=== PATIENT | female | born 1940 | race Caucasian/White ===

== ENCOUNTER 2020-02-23 16:55 | IRF | payer MEDICARE, SELFPAY ==
[2020-02-23 16:55] VITALS: BP 137/51; PULSE 89; RESP 20; TEMP 36.4; O2SAT 100
--- NOTE | 2020-02-23 17:14 | ADMGEN ---
This patient, Kristyn Sánchez, was admitted to [facility] Room 223-02. Patient/family oriented to hospital policies and general routines including ID bracelet, bed and alarms, visiting hours, pain management, procedures, bathroom and other care routines, personal items, smoking policy, room service/diet, and visiting hours. Information on how to activate the Rapid Response Team has been discussed. Patient/Family are encouraged to report perceived risks to care and to ask questions if they do not understand what they are told or what they should do.
[2020-02-23 18:16] VITALS: BMI 37.2
[2020-02-23 20:00] VITALS: PULSE 68; RESP 18; O2SAT 100
[2020-02-23] MEDS: SENNOSIDES 8.6 MG TABLET PO (21:20)
[2020-02-23] MEDS: traZODone HCL 50 MG TABLET PO (21:20)
[2020-02-23] MEDS: ACETAMINOPHEN 500 MG TABLET PO (21:20)
[2020-02-23] MEDS: oxyCODONE HCL (*CRX) 2.5 MG TAB IR PO (21:26)
[2020-02-23 21:45] VITALS: BP 133/60; PULSE 68; RESP 18; TEMP 36.9; O2SAT 100
[2020-02-24] MEDS: ACETAMINOPHEN 500 MG TABLET PO (02:38)
[2020-02-24] MEDS: oxyCODONE HCL (*CRX) 2.5 MG TAB IR PO (02:38)
[2020-02-24 05:18] VITALS: BP 134/60; PULSE 68; RESP 18; TEMP 36.8; O2SAT 96
[2020-02-24 05:31] LABS: Basophils Absolute Auto 0.1 K/mm3 (0.0-0.1); Basophils Percent Auto 0.7 % (0.2-1.2); Eosinophils Absolute Auto 0.4 K/mm3 (0-0.3); Hematocrit 29.1 % (37.0-47.0); Hemoglobin 9.4 g/dL (12.0-15.0); Immature Granulocyte Absolute 0.04 K/mm3 (0.00-0.031); Immature Granulocyte Percent A 0.6 % (0-0.5); Lymphocytes Absolute Auto 1.47 K/mm3 (0.9-3.2); Lymphocytes Percent Auto 20.6 % (18.3-44.2); Mean Corpuscular HGB Conc 32.3 g/dl (32-36); Mean Corpuscular Hemoglobin 28.2 pg (26-34); Mean Corpuscular Volume 87.4 fl (80-100); Mean Platelet Volume 8.9 fl (7.4-10.4); Monocytes Absolute Auto 0.9 K/mm3 (0.1-0.6); Monocytes Percent Auto 11.9 % (2.6-8.5); Neutrophils Absolute Auto 4.3 K/mm3 (1.3-6.7); Neutrophils Percent Auto 60.2 % (45.5-73.1); Platelet Count Result 372 k/mm3 (150-375); Red Blood Count 3.33 M/mm3 (4.2-5.4); Red Cell Distribution Width 14.6 % (11.5-14.5); White Blood Count 7.1 K/mm3 (4.5-10.0)
[2020-02-24 05:47] LABS: Anion Gap 0 mmol/L (8-16); Blood Urea Nitrogen 14 mg/dL (7-17); Calcium 8.4 mg/dL (8.4-10.2); Carbon Dioxide 32 mmol/L (22-30); Chloride 103 mmol/L (98-107); Estimated Glomerular Filt Rate > 60; Glucose 97 mg/dL (65-105); Potassium 3.9 mmol/L (3.4-5.0); Sodium 135 mmol/L (137-145)
[2020-02-24] MEDS: ACETAMINOPHEN 500 MG TABLET 1000 MG PO ×3 (08:27→21:32)
[2020-02-24] MEDS: polyethylene glycoL 3350 17 GM POWD.PACK PO (08:28)
[2020-02-24] MEDS: FLUTICASONE PROPIONATE 0.05% NA SPR 16 GM BTL (*BKC) 2 SPRAY NASAL (08:28)
[2020-02-24] MEDS: SENNOSIDES 8.6 MG TABLET PO ×2 (08:28→21:33)
[2020-02-24] MEDS: ENOXAPARIN 40 MG/0.4 ML SYRINGE SUB-Q (08:28)
[2020-02-24] MEDS: FLUTICASONE/SALMETEROL 230-21 MCG INHALER 1 PUFF 2 PUFF INHALATION ×2 (08:30→21:40)
--- NOTE | 2020-02-24 11:52 | WPDREHABHP ---
H&P: HPI History of Present Illness Date/Time: 02/24/20 11:52 Chief Complaint: C2 vertebral body burst fracture involving both pedicles and left inferior and superior pubic rami fractures and multiple rib fractures Narrative: Kristyn Sánchez is a 79 year old female HISTORY OF PRESENT ILLNESS: The patient's primary rehab impairment category is major multiple trauma without brain or spine injury The etiologic diagnosis is C2 vertebral body burst fracture involving both pedicles. Left inferior and superior pubic rami fractures. Multiple rib fractures I saw this patient [id number] on February 24, 2020 at 11:30 a.m. The patient is a 79 years old female with a prior medical history of bronchial asthma and Raynaud's disease presented to [facility] on February 14, 2020 from [facility] after a ground level fall resulting in multiple traumatic injuries in fractures. The patient reported she has had multiple falls over the last few weeks. The patient arrived to the emergency room neurologically intact on 2L of oxygen. Imaging add [facility] showed multiple rib fractures on right 4th to 11th ribs and left 2nd to 10th ribs, C2 vertebral body burst fracture with multiple ligamentous injuries, left superior inferior pubic rami fractures, and age indeterminate T10 compression fracture as well. Ortho trauma was consulted and recommended that patient be weight-bearing as tolerated with conservative management of fractures. Neurosurgery was consulted and recommended that patient be placed in cervical collar with a SOMI collar to being made and strict cervical precautions. The patient underwent a C1-C4 posterior cervical fusion laminectomy per Dr. Mosqueda. Patient was left intubated after surgery and was transferred to the surgical ICU with the 1st attempt of extubation failed, but the patient was successfully extubated on the afternoon of 1228. VICK drain was placed following surgery. Postop complications included acute blood-loss anemia, significant pain, and a failed extubation. The patient was transferred to the medical floor on 02/16. The patient was worked up for a possible syncopal episode from the fall but TTE and CTA were unremarkable the patient was weaned off oxygen on February 18, 2020. The patient VICK drain was discontinued on 02/19. The patient was discharged to [facility] on Lovenox times 14 days with stop date on 03/08 2020 #COVI: the patient has not traveled outside the [place] or had contact with someone who is ill that has traveled outside the [place] in the last 21 days. The patient has had traveled to an area of the [place] that is experiencing known transmission of the Coronavirus and has not had close personal contact with anyone that has. The patient does not have a fever. The patient is not experiencing lower respiratory illness symptoms. Negative COVID test on February 13, 2020. Therapy was initiated at the acute care facility and the patient transferred to us from [facility] on February 23, 2020 FALLS OR SURGERIES: the patient has had no major surgery in the last 100 days. The patient has had 2 or more falls with injury in the last year. 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 PAST SURGICAL HISTORY: appendicectomy, cholecystectomy, tonsillectomy. SOCIAL HISTORY: The patient lives alone in a 1 level home with 2 steps to enter. She was previously completely independent without device, but does have 4 wheeled walker at home from a previous surgery. Patient reports no tobacco, alcohol, or illicit drug use. Never smoke. FAMILY HISTORY: Noncontributory PRIOR LEVEL OF FUNCTION: Eating was [INDEPENDENT] Oral Care was [INDEPENDENT] Toileting Hygiene was [INDEPENDENT] Shower/Bathing was [INDEPENDENT] Upper Body Dressing was [INDE
[2020-02-24 13:23] VITALS: BMI 37.2
[2020-02-24 14:00] VITALS: BP 136/53; PULSE 88; RESP 20; TEMP 36.7; O2SAT 99
[2020-02-24 20:31] VITALS: BP 134/51; PULSE 96; RESP 20; TEMP 35.9; O2SAT 97
[2020-02-24] MEDS: traZODone HCL 50 MG TABLET PO (21:33)
[2020-02-25] MEDS: oxyCODONE HCL (*CRX) 2.5 MG TAB IR PO ×2 (02:09→22:29)
[2020-02-25] MEDS: ACETAMINOPHEN 500 MG TABLET 1000 MG PO ×4 (03:09→20:42)
[2020-02-25 05:51] VITALS: BP 113/51; PULSE 88; RESP 20; TEMP 36.5; O2SAT 96
[2020-02-25] MEDS: ENOXAPARIN 40 MG/0.4 ML SYRINGE SUB-Q (08:28)
[2020-02-25] MEDS: FLUTICASONE PROPIONATE 0.05% NA SPR 16 GM BTL (*BKC) 2 SPRAY NASAL (08:28)
[2020-02-25] MEDS: FLUTICASONE/SALMETEROL 230-21 MCG INHALER 1 PUFF 2 PUFF INHALATION ×2 (08:29→20:46)
--- NOTE | 2020-02-25 13:05 | PCDIET ---
Nutrition Follow-Up Complete: Nutrition Diagnosis: Obesity related to history of excessive energy intake as evidenced by BMI of 37.2. Nutrition Goal: Patient to consume 75% of meals or greater. Goal met. Patient consuming 100% of meals on regular diet. Patient reports good appetite and likes the food here. Last recorded weight is 83.6 kg. Recommend obtaining weekly weights. Bowel Motility: Documented BM on 02/24/20 per toileting assessment. Labs Reviewed: No new labs available. Meds Noted: Roxicodone, Advair Additional Notes: No documented pressure sores. Will continue to monitor with same goal. Nutrition Monitoring and Evaluation: Follow in 7 days.
[2020-02-25 14:00] VITALS: BP 137/53; PULSE 93; RESP 20; TEMP 36.4; O2SAT 97
--- NOTE | 2020-02-25 14:32 | RPD ---
INDIVIDUALIZED PLAN OF CARE FOR Kristyn Sánchez Brief Synthesis of Pre-Admission Screen, Post-Admission Evaluation and Therapy Evaluations: The patient presents to rehab with Major Multiple Trauma of C2 vertebral body burst fracture involving both pedicles, left inferior and superior pubic rami fractures, and multiple rib fractures. Comorbidities include s/p ground level fall, recurrent falls, right 4th, 5th, 6th, 7th, 8th,9th, 11th rib fractures, left 2nd, 3rd, 4th, 5th, 6th, 7th, 8th, 10th rib fractures, left superior/inferior pubic rami fracture, T10 compression fracture, arthritis, asthma, Raynaud's disease, severe bilateral glenohumeral joint osteoarthritis, superior dislocation of the right humerus, acute respiratory insufficiency, and incidental left kidney mass. The complexity of the patient's medical management, nursing, and therapy needs require an inpatient rehab hospital stay with a physician-led interdisciplinary team approach. The patient?s needs will be best met in an intensive program vs. at a lower level of care. The patient requires physician services for medical oversight, management of postop complications in setting of present comorbidities, and pain management. She will be followed at least three times a week by the rehabilitation physician. The patient requires nursing services for DVT prophylactics, infection protection, medication management and education, pressure relief, and wound care. Prior to admission, the patient was completely independent in all regards, with no device. Deficits include:ADLs, Balance, Endurance, Family Training/Education, Mobility, Pain Management, ROM, Safety, Strength, and Transfers. Bench Repair Technician/Case Management for: Discharge Planning and Patient/Family Counseling Physical Therapy: 5 days per week for 90 minutes. Treatments may include: Therapeutic Exercise, Gait Training, Neuromuscular Re-education, Transfer Training, Community Reintegration, Bed Mobility, Patient/Family Education, Wheelchair Mobility Group Therapy/Concurrent Therapy Rationales: -Improve attention span during functional activities in a distracted environment. -Enhance problem solving and/or adequate judgment skills during functional activities in a distracted environment. -Promote increased safety awareness in a distracted environment to reduce fall risk with functional tasks, transfers, and ambulation to allow a more safe, self-sufficient return to the home environment. -Improve dynamic balance skills to promote safety and independence with functional activities in a distracted environment for maximum gain. Occupational Therapy: 5 days per week for 90 minutes. Treatments may include: Therapeutic Exercise, Therapeutic Activity, Cognitive Training, Self-Care Transfer Training, Community Reintegration, Home Management, Patient/Family Education, Wheelchair Mobility Training, Energy Conservation Training Group Therapy/Concurrent Therapy Rationales: -Allow therapist to observe and teach generalization and carry-over of skills learned in individual therapy. -Enhance problem solving and sequencing skills during therapeutic activities in a distracted environment. -Promote increased safety awareness in a realistic setting to reduce fall risk with functional tasks due to visual and verbal distractions. -Increase functional level with ADLs, ADL transfers and use of adaptive equipment through therapeutic activities with others while promoting safety to allow a more safe, self-sufficient return home. Medical Prognosis: Good Anticipated Length of Stay: 14 days Rehab Goals: Eating Goal: 05-Setup or Clean Up Assistance Oral Hygiene Goal: 05-Setup or Clean Up Assistance Toileting Hygiene Goal: 04-Supervision or Touching Assistance Shower/Bathe Self Goal: 03-Partial/Moderate Assistance Upper Body Dressing Goal: 03-Partial/Moderate Assistance Lower Body Dressing Goal: 05-Setup or Clean Up Assistance Putting On/Taking Off Footwear Goal: 05-Setup or Clean U
--- NOTE | 2020-02-25 15:19 | WPDNEURORHBP ---
Subjective Date/time seen: 02/25/20 15:19 admitted to the rehab with C2 vertebral body burst fracture involving both pedicles and left inferior and superior pubic rami fractures and multiple rib fractures remains afebrile with temp of 36.4? pulse 93 respiration 20 pulse ox 97% and blood pressure 137/53 lab from yesterday shows WBC 7.1 hemoglobin 9.4 platelet count of 372 and electrolytes fairly normal Review of Systems Review of Systems: All systems reviewed & are unremarkable except as noted in HPI and below Functional Status Ambulation Ability Ability to Ambulate 10 Feet: Contact Guard Ability to Ambulate 50 Feet With 2 Turns: Contact Guard Ability to Ambulate 150 Feet: Contact Guard Ambulation Assistive Devices: Walker, Wheeled Exam Const: General: cooperative, comfortable and no acute distress Orientation/consciousness: patient oriented x3 HENMT: Head: normocephalic Ears: hearing grossly normal bilaterally General nose exam: Normal external nose present and No nasal discharge present Face and sinus: normal facial exam Mouth: Yes Normal oral and palatal mucosa present Eyes: General: appearance normal, both eyes and all related structures Neck: Neck: normal visual inspection and full ROM Resp: Auscultation: clear to auscultation bilaterally Cardio: Jugular venous distension: no JVD Rate: regular rate Rhythm: regular rhythm GI: Auscultation: normal bowel sounds Neuro: General: patient oriented x3 Cranial nerves: Yes CN's II-XII intact bilaterally Speech: normal speech Plantar Reflex Responses: downgoing: bilateral Psych: Appearance: grossly normal Objective Data Vital Signs Vital Signs: Vital Signs - 24 hr 02/24/20 20:31 02/25/20 05:51 02/25/20 14:00 Temperature 35.9 C L 36.5 C 36.4 C Pulse Rate 96 88 93 Respiratory Rate 20 20 20 Blood Pressure 134/51 L 113/51 L 137/53 L Pulse Oximetry 97 96 97 Intake/Output Intake/Output: Intake & Output 02/22/20 02/23/20 02/24/20 02/25/20 23:59 23:59 23:59 23:59 Intake Total 720 480 Balance 720 480 Meds/Results Medications: Active Medications Generic Name Dose Route Start Last Admin Trade Name Freq PRN Reason Stop Dose Admin Acetaminophen 1,000 mg 02/24/20 09:00 02/25/20 14:21 Acetaminophen 500 Mg Tablet PO 1,000 mg Q6H VICENTE Administration Albuterol 2 puff 02/23/20 17:32 Albuterol Sulfate (*Sp) Aerosol 1 Puff INHALATION QID PRN Wheezing Enoxaparin Sodium 40 mg 02/24/20 09:00 02/25/20 08:28 Enoxaparin 40 Mg/0.4 Ml Syringe SUB-Q 03/22/20 09:01 40 mg DAILY VICENTE Administration Fluticasone Propionate 2 spray 02/24/20 09:00 02/25/20 08:28 Fluticasone Propionate 0.05% Na Spr 16 Gm Btl (*Bkc) NASAL 2 spray QAM VICENTE Administration Non-Formulary Medication 8 mg 02/23/20 21:00 Ramelteon [Rozerem] PO 03/24/20 21:01 HS VICENTE Oxycodone HCl 2.5 mg 02/23/20 17:32 02/25/20 02:09 Oxycodone Hcl (*Crx) 2.5 Mg Tab Ir PO 2.5 mg Q4H PRN Administration Pain (Scale Score 7-10) Polyethylene Glycol 17 gm 02/24/20 09:00 02/25/20 08:29 Polyethylene Glycol 3350 17 Gm Powd.Pack PO Not Given DAILY VICENTE Fluticasone/Salmeterol 2 puff 02/23/20 21:00 02/25/20 08:29 Fluticasone/Salmeterol 230-21 Mcg Inhaler 1 Puff INHALATION 2 puff Q12HR VICENTE Administration Senna 8.6 mg 02/23/20 21:00 02/25/20 08:28 Sennosides 8.6 Mg Tablet PO Not Given Q12HR VICENTE Trazodone HCl 50 mg 02/23/20 21:00 02/24/20 21:33 Trazodone Hcl 50 Mg Tablet PO 50 mg HS VICENTE Administration Progress Note: A&P Assessment and Plan (1) 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
[2020-02-25 20:44] VITALS: BP 131/51; PULSE 95; RESP 16; TEMP 37; O2SAT 98
[2020-02-25] MEDS: traZODone HCL 50 MG TABLET PO (20:46)
[2020-02-26] MEDS: oxyCODONE HCL (*CRX) 2.5 MG TAB IR PO ×2 (02:55→10:03)
[2020-02-26] MEDS: ACETAMINOPHEN 500 MG TABLET 1000 MG PO ×4 (04:02→21:15)
[2020-02-26 05:33] VITALS: BP 105/40; PULSE 89; RESP 16; TEMP 36.3; O2SAT 97
[2020-02-26] MEDS: ENOXAPARIN 40 MG/0.4 ML SYRINGE SUB-Q (08:32)
[2020-02-26] MEDS: FLUTICASONE PROPIONATE 0.05% NA SPR 16 GM BTL (*BKC) 2 SPRAY NASAL (08:32)
[2020-02-26] MEDS: FLUTICASONE/SALMETEROL 230-21 MCG INHALER 1 PUFF 2 PUFF INHALATION ×2 (08:33→21:17)
[2020-02-26] MEDS: SENNOSIDES 8.6 MG TABLET PO ×2 (08:33→21:16)
--- NOTE | 2020-02-26 11:37 | PCPTNOTE ---
Kristyn Sánchez was evaluated for a wheeled walker on 02/26/2020 by this physical therapist. The wheeled walker will resolve patient's mobility limitations and will be used for ADL's within the home. The patient can safely use the wheeled walker. ?The wheeled walker will resolve the patient?s mobility deficits, including decreased balance, endurance, and strength.
[2020-02-26 14:00] VITALS: BP 164/51; PULSE 103; RESP 20; TEMP 36.6; O2SAT 99
--- NOTE | 2020-02-26 15:51 | WPDNEURORHBP ---
Subjective Date/time seen: 02/26/20 15:51 admitted to the rehab with C2 vertebral body burst fracture involving both pedicles and left inferior and superior pubic rami fractures along with multiple rib fractures remains afebrile with temp of 36.6? pulse 103 high and respiration 20 blood pressure 164/51 labs with WBC 7.1 hemoglobin 9.4 platelet count of 372 and electrolytes was somewhat low put sodium of 135 Review of Systems Review of Systems: All systems reviewed & are unremarkable except as noted in HPI and below Functional Status Ambulation Ability Ability to Ambulate 10 Feet: Standby Assistance Ability to Ambulate 50 Feet With 2 Turns: Standby Assistance Ability to Ambulate 150 Feet: Contact Guard Ambulation Assistive Devices: Walker, Wheeled Exam Narrative: Exam Narrative: awake alert cooperative in no obvious acute distress oriented x3, head normocephalic with no cranial bruit ear nose throat examination normal neck supple with no cervical bruit , thyromegaly no lymphadenopathy, heart regular with no murmur lungs clear to auscultation with no rhonchi or crepitations abdomen is soft with no organomegaly nontender normal bowel sounds neurological examination revealed her to be awake alert oriented x3 the cranial examination is normal his speech is normal motor examination revealed no drift of 1 side other side reflexes symmetrical plantars downgoing as psych grossly normal Const: General: cooperative and no acute distress Objective Data Vital Signs Vital Signs: Vital Signs - 24 hr 02/25/20 20:44 02/26/20 05:33 02/26/20 14:00 Temperature 37.0 C 36.3 C L 36.6 C Pulse Rate 95 89 103 H Respiratory Rate 16 16 20 Blood Pressure 131/51 L 105/40 L 164/51 H Pulse Oximetry 98 97 99 Intake/Output Intake/Output: Intake & Output 02/23/20 02/24/20 02/25/20 02/26/20 23:59 23:59 23:59 23:59 Intake Total 720 720 480 Balance 720 720 480 Meds/Results Medications: Active Medications Generic Name Dose Route Start Last Admin Trade Name Freq PRN Reason Stop Dose Admin Acetaminophen 1,000 mg 02/24/20 09:00 02/26/20 15:30 Acetaminophen 500 Mg Tablet PO 1,000 mg Q6H VICENTE Administration Albuterol 2 puff 02/23/20 17:32 Albuterol Sulfate (*Sp) Aerosol 1 Puff INHALATION QID PRN Wheezing Enoxaparin Sodium 40 mg 02/24/20 09:00 02/26/20 08:32 Enoxaparin 40 Mg/0.4 Ml Syringe SUB-Q 03/22/20 09:01 40 mg DAILY VICENTE Administration Fluticasone Propionate 2 spray 02/24/20 09:00 02/26/20 08:32 Fluticasone Propionate 0.05% Na Spr 16 Gm Btl (*Bkc) NASAL 2 spray QAM VICENTE Administration Non-Formulary Medication 8 mg 02/23/20 21:00 Ramelteon [Rozerem] PO 03/24/20 21:01 HS VICENTE Oxycodone HCl 5 mg 02/26/20 18:00 Oxycodone Hcl (*Crx) 5 Mg Tab Ir PO Q6HR VICENTE Polyethylene Glycol 17 gm 02/24/20 09:00 02/26/20 08:34 Polyethylene Glycol 3350 17 Gm Powd.Pack PO Not Given DAILY VICENTE Fluticasone/Salmeterol 2 puff 02/23/20 21:00 02/26/20 08:33 Fluticasone/Salmeterol 230-21 Mcg Inhaler 1 Puff INHALATION 2 puff Q12HR VICENTE Administration Senna 8.6 mg 02/23/20 21:00 02/26/20 08:33 Sennosides 8.6 Mg Tablet PO 8.6 mg Q12HR VICENTE Administration Trazodone HCl 50 mg 02/23/20 21:00 02/25/20 20:46 Trazodone Hcl 50 Mg Tablet PO 50 mg HS VICENTE Administration Progress Note: A&P Assessment and Plan (1) 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
[2020-02-26] MEDS: oxyCODONE HCL (*CRX) 5 MG TAB IR PO ×2 (17:57→23:55)
[2020-02-26 20:00] VITALS: PULSE 103; RESP 20; O2SAT 99
--- NOTE | 2020-02-26 20:15 | PC.NURSE ---
Late entry: Patient had been complaining of discomfort from brace, feeling like something was poking her neck area. Per Dr. Rodriguez, place some kind of cushion to said areas. When went in to assess to see what would be best to use, she stated it was fine now; she just repositioned herself and it stopped bothering her (stating area james near shoulder area which has padding. Will continue to monitor, and instructed to let us know if bothers her again.
[2020-02-26] MEDS: traZODone HCL 50 MG TABLET PO (21:15)
[2020-02-26 22:00] VITALS: BP 152/53; PULSE 90; RESP 18; TEMP 36.5; O2SAT 98
[2020-02-27] MEDS: ACETAMINOPHEN 500 MG TABLET 1000 MG PO ×4 (03:52→20:20)
[2020-02-27 06:00] VITALS: BP 152/53; PULSE 90; RESP 18; TEMP 36.6; O2SAT 98
[2020-02-27] MEDS: oxyCODONE HCL (*CRX) 5 MG TAB IR PO ×3 (06:42→17:37)
[2020-02-27] MEDS: ENOXAPARIN 40 MG/0.4 ML SYRINGE SUB-Q (09:52)
[2020-02-27] MEDS: FLUTICASONE PROPIONATE 0.05% NA SPR 16 GM BTL (*BKC) 2 SPRAY NASAL (09:52)
[2020-02-27] MEDS: FLUTICASONE/SALMETEROL 230-21 MCG INHALER 1 PUFF 2 PUFF INHALATION ×2 (09:53→20:21)
[2020-02-27] MEDS: SENNOSIDES 8.6 MG TABLET PO ×2 (09:54→20:21)
--- NOTE | 2020-02-27 11:34 | WPDNEURORHBP ---
Subjective Date/time seen: 79 years old with C2 vertebral body burst fracture involving both pedicles and left inferior and superior pubic rami fracture and multiple rib fractures remains afebrile temp of 36.6? pulse 90 respiration 18 pulse ox 98% on room air and a blood pressure 152/53, no new lab Review of Systems Review of Systems: All systems reviewed & are unremarkable except as noted in HPI and below Functional Status Ambulation Ability Ability to Ambulate 10 Feet: Standby Assistance Ability to Ambulate 50 Feet With 2 Turns: Standby Assistance Ability to Ambulate 150 Feet: Contact Guard Ambulation Assistive Devices: Walker, Wheeled Exam Const: General: cooperative, no acute distress, alert and awake Nutritional Appearance: average body habitus Orientation/consciousness: patient oriented x3 HENMT: Ears: hearing grossly normal bilaterally General nose exam: Normal external nose present and No nasal discharge present Face and sinus: normal facial exam Mouth: Yes Normal oral and palatal mucosa present Eyes: General: appearance normal, both eyes and all related structures Resp: Auscultation: clear to auscultation bilaterally Cardio: Jugular venous distension: no JVD Rate: regular rate Rhythm: regular rhythm GI: Auscultation: normal bowel sounds Neuro: General: patient oriented x3 and moves all extremities Cranial nerves: Yes CN's II-XII intact bilaterally Cognition (Neuro): normal cognition Speech: normal speech Motor exam (neuro): 5/5 motor strength present throughout Sensory Exam: normal sensation Coordination: [id number] test normal Extrem: General: full ROM Psych: Appearance: grossly normal Objective Data Vital Signs Vital Signs: Vital Signs - 24 hr 02/26/20 14:00 02/26/20 20:00 02/26/20 22:00 Temperature 36.6 C 36.5 C Pulse Rate 103 H 103 H 90 Respiratory Rate 20 20 18 Blood Pressure 164/51 H 152/53 H Pulse Oximetry 99 99 98 02/27/20 06:00 Temperature 36.6 C Pulse Rate 90 Respiratory Rate 18 Blood Pressure 152/53 H Pulse Oximetry 98 Intake/Output Intake/Output: Intake & Output 02/24/20 02/25/20 02/26/20 02/27/20 23:59 23:59 23:59 23:59 Intake Total 720 720 720 240 Balance 720 720 720 240 Meds/Results Medications: Active Medications Generic Name Dose Route Start Last Admin Trade Name Freq PRN Reason Stop Dose Admin Acetaminophen 1,000 mg 02/24/20 09:00 02/27/20 09:52 Acetaminophen 500 Mg Tablet PO 1,000 mg Q6H VICENTE Administration Albuterol 2 puff 02/23/20 17:32 Albuterol Sulfate (*Sp) Aerosol 1 Puff INHALATION QID PRN Wheezing Enoxaparin Sodium 40 mg 02/24/20 09:00 02/27/20 09:52 Enoxaparin 40 Mg/0.4 Ml Syringe SUB-Q 03/22/20 09:01 40 mg DAILY VICENTE Administration Fluticasone Propionate 2 spray 02/24/20 09:00 02/27/20 09:52 Fluticasone Propionate 0.05% Na Spr 16 Gm Btl (*Bkc) NASAL 2 spray QAM VICENTE Administration Non-Formulary Medication 8 mg 02/23/20 21:00 Ramelteon [Rozerem] PO 03/24/20 21:01 HS VICENTE Oxycodone HCl 5 mg 02/26/20 18:00 02/27/20 06:42 Oxycodone Hcl (*Crx) 5 Mg Tab Ir PO 5 mg Q6HR VICENTE Administration Polyethylene Glycol 17 gm 02/24/20 09:00 02/27/20 10:04 Polyethylene Glycol 3350 17 Gm Powd.Pack PO Not Given DAILY VICENTE Fluticasone/Salmeterol 2 puff 02/23/20 21:00 02/27/20 09:53 Fluticasone/Salmeterol 230-21 Mcg Inhaler 1 Puff INHALATION 2 puff Q12HR VICENTE Administration Senna 8.6 mg 02/23/20 21:00 02/27/20 09:54 Sennosides 8.6 Mg Tablet PO 8.6 mg Q12HR VICENTE Administration Trazodone HCl 50 mg 02/23/20 21:00 02/26/20 21:15 Trazodone Hcl 50 Mg Tablet PO 50 mg HS VICENTE Administration Progress Note: A&P Assessment and Plan (1) 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
[2020-02-27 14:03] VITALS: BP 130/53; PULSE 92; RESP 16; TEMP 36.7; O2SAT 96
[2020-02-27 20:20] VITALS: PULSE 86; RESP 18; O2SAT 97
[2020-02-27] MEDS: traZODone HCL 50 MG TABLET PO (20:21)
[2020-02-27 21:31] VITALS: BP 122/56; PULSE 86; RESP 18; TEMP 36; O2SAT 97
[2020-02-28] MEDS: oxyCODONE HCL (*CRX) 5 MG TAB IR PO ×5 (00:15→23:30)
[2020-02-28] MEDS: ACETAMINOPHEN 500 MG TABLET 1000 MG PO ×4 (03:20→20:08)
[2020-02-28 04:23] VITALS: BP 111/49; PULSE 82; RESP 18; TEMP 36.2; O2SAT 97
[2020-02-28] MEDS: FLUTICASONE PROPIONATE 0.05% NA SPR 16 GM BTL (*BKC) 2 SPRAY NASAL (09:46)
[2020-02-28] MEDS: ENOXAPARIN 40 MG/0.4 ML SYRINGE SUB-Q (09:47)
[2020-02-28] MEDS: SENNOSIDES 8.6 MG TABLET PO ×2 (09:47→20:09)
[2020-02-28] MEDS: FLUTICASONE/SALMETEROL 230-21 MCG INHALER 1 PUFF 2 PUFF INHALATION ×2 (09:48→20:08)
[2020-02-28 14:00] VITALS: BP 117/39; PULSE 95; RESP 18; TEMP 36.4; O2SAT 99
[2020-02-28] MEDS: traZODone HCL 50 MG TABLET PO (20:08)
[2020-02-28 22:00] VITALS: BP 133/61; PULSE 84; RESP 18; TEMP 36.2; O2SAT 99
[2020-02-29] MEDS: oxyCODONE HCL (*CRX) 5 MG TAB IR PO ×4 (05:12→23:37)
[2020-02-29 05:45] VITALS: BP 148/53; PULSE 90; RESP 18; TEMP 37.3; O2SAT 96
[2020-02-29 08:00] VITALS: PULSE 90; RESP 18; O2SAT 96
[2020-02-29] MEDS: ENOXAPARIN 40 MG/0.4 ML SYRINGE SUB-Q (08:32)
[2020-02-29] MEDS: ACETAMINOPHEN 500 MG TABLET 1000 MG PO ×3 (08:32→21:02)
[2020-02-29] MEDS: FLUTICASONE PROPIONATE 0.05% NA SPR 16 GM BTL (*BKC) 2 SPRAY NASAL (08:33)
[2020-02-29] MEDS: SENNOSIDES 8.6 MG TABLET PO ×2 (08:34→21:02)
[2020-02-29] MEDS: FLUTICASONE/SALMETEROL 230-21 MCG INHALER 1 PUFF 2 PUFF INHALATION ×2 (08:44→21:00)
[2020-02-29 14:00] VITALS: BP 111/45; PULSE 77; RESP 20; TEMP 36.6; O2SAT 99
[2020-02-29 20:00] VITALS: PULSE 87; RESP 20; O2SAT 100
[2020-02-29] MEDS: traZODone HCL 50 MG TABLET PO (21:02)
[2020-02-29 22:00] VITALS: BP 132/63; PULSE 87; RESP 20; TEMP 36.6; O2SAT 100
[2020-03-01] MEDS: ACETAMINOPHEN 500 MG TABLET 1000 MG PO ×4 (03:20→22:09)
[2020-03-01 06:00] VITALS: BP 124/48; PULSE 84; RESP 20; TEMP 36.6; O2SAT 95
[2020-03-01] MEDS: oxyCODONE HCL (*CRX) 5 MG TAB IR PO ×3 (06:04→17:03)
[2020-03-01] MEDS: ENOXAPARIN 40 MG/0.4 ML SYRINGE SUB-Q (08:18)
[2020-03-01] MEDS: FLUTICASONE PROPIONATE 0.05% NA SPR 16 GM BTL (*BKC) 2 SPRAY NASAL (08:18)
[2020-03-01] MEDS: FLUTICASONE/SALMETEROL 230-21 MCG INHALER 1 PUFF 2 PUFF INHALATION ×2 (08:18→22:09)
[2020-03-01] MEDS: SENNOSIDES 8.6 MG TABLET PO ×2 (08:18→22:10)
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
[2020-03-01 14:00] VITALS: BP 125/52; PULSE 79; RESP 18; TEMP 36.6; O2SAT 96
[2020-03-01 20:00] VITALS: PULSE 84; RESP 20; O2SAT 99
[2020-03-01 22:00] VITALS: BP 141/61; PULSE 84; RESP 20; TEMP 36.7; O2SAT 99
[2020-03-01] MEDS: traZODone HCL 50 MG TABLET PO (22:10)
[2020-03-02] MEDS: oxyCODONE HCL (*CRX) 5 MG TAB IR PO ×5 (01:07→23:59)
[2020-03-02] MEDS: ACETAMINOPHEN 500 MG TABLET 1000 MG PO ×4 (04:27→20:38)
[2020-03-02 05:11] LABS: Basophils Percent Auto 0.7 % (0.2-1.2); Eosinophils Absolute Auto 0.4 K/mm3 (0-0.3); Eosinophils Percent Auto 7.2 % (0-4.4); Hematocrit 28.4 % (37.0-47.0); Hemoglobin 9.1 g/dL (12.0-15.0); Immature Granulocyte Absolute 0.02 K/mm3 (0.00-0.031); Immature Granulocyte Percent A 0.4 % (0-0.5); Mean Corpuscular Hemoglobin 28.9 pg (26-34); Mean Corpuscular Volume 90.2 fl (80-100); Mean Platelet Volume 8.6 fl (7.4-10.4); Monocytes Absolute Auto 0.6 K/mm3 (0.1-0.6); Monocytes Percent Auto 10.3 % (2.6-8.5); Neutrophils Absolute Auto 3.1 K/mm3 (1.3-6.7); Neutrophils Percent Auto 57.4 % (45.5-73.1); Platelet Count Result 379 k/mm3 (150-375); Red Blood Count 3.15 M/mm3 (4.2-5.4); Red Cell Distribution Width 15.3 % (11.5-14.5); White Blood Count 5.4 K/mm3 (4.5-10.0)
[2020-03-02 05:27] LABS: Anion Gap 0 mmol/L (8-16); Blood Urea Nitrogen 16 mg/dL (7-17); Calcium 8.7 mg/dL (8.4-10.2); Carbon Dioxide 33 mmol/L (22-30); Chloride 104 mmol/L (98-107); Estimated Glomerular Filt Rate > 60; Glucose 92 mg/dL (65-105); Potassium 3.7 mmol/L (3.4-5.0); Sodium 137 mmol/L (137-145)
[2020-03-02 06:00] VITALS: BP 125/55; PULSE 81; RESP 20; TEMP 36.8; O2SAT 98
[2020-03-02 08:00] VITALS: PULSE 81; RESP 20; O2SAT 98
[2020-03-02] MEDS: ENOXAPARIN 40 MG/0.4 ML SYRINGE SUB-Q (10:19)
[2020-03-02] MEDS: FLUTICASONE PROPIONATE 0.05% NA SPR 16 GM BTL (*BKC) 2 SPRAY NASAL (10:19)
[2020-03-02] MEDS: SENNOSIDES 8.6 MG TABLET PO ×2 (10:20→20:39)
[2020-03-02] MEDS: FLUTICASONE/SALMETEROL 230-21 MCG INHALER 1 PUFF 2 PUFF INHALATION ×2 (10:21→20:39)
--- NOTE | 2020-03-02 11:24 | PCDIET ---
Nutrition Follow-Up Complete: Nutrition Diagnosis: Obesity related to history of excessive energy intake as evidenced by BMI of 37.2. Nutrition Goal: Patient to consume 75% of meals or greater. Goal met. Patient consuming 100% of most meals on regular diet. Last recorded weight is 83.6 kg. Recommend obtaining new weight. Bowel Motility: Last documented BM on 03/01/20. Labs Reviewed: Hgb (9.1), Hct (28.4), Cr (0.4) Meds Noted: Albuterol, Advair, Senna Additional Notes: No pressure sores documented. Will continue to monitor with same goal. Nutrition Monitoring and Evaluation: Follow in 7 days.
[2020-03-02 14:00] VITALS: BP 132/56; PULSE 85; RESP 16; TEMP 35.9; O2SAT 98
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
[2020-03-02] MEDS: traZODone HCL 50 MG TABLET PO (20:39)
[2020-03-02 20:50] VITALS: PULSE 88; RESP 18; O2SAT 97
[2020-03-02 22:00] VITALS: BP 143/61; PULSE 88; RESP 18; TEMP 36.2; O2SAT 97
[2020-03-03] MEDS: oxyCODONE HCL (*CRX) 5 MG TAB IR PO ×4 (05:46→23:40)
[2020-03-03 06:00] VITALS: BP 141/56; PULSE 86; RESP 18; TEMP 36.3; O2SAT 99
[2020-03-03] MEDS: SENNOSIDES 8.6 MG TABLET PO ×2 (09:46→20:10)
[2020-03-03] MEDS: LORATADINE 10 MG TABLET PO (09:46)
[2020-03-03] MEDS: ACETAMINOPHEN 500 MG TABLET 1000 MG PO ×3 (09:47→20:09)
[2020-03-03] MEDS: ENOXAPARIN 40 MG/0.4 ML SYRINGE SUB-Q (09:47)
[2020-03-03] MEDS: FLUTICASONE PROPIONATE 0.05% NA SPR 16 GM BTL (*BKC) 2 SPRAY NASAL (09:47)
[2020-03-03] MEDS: FLUTICASONE/SALMETEROL 230-21 MCG INHALER 1 PUFF 2 PUFF INHALATION ×2 (09:48→20:09)
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
[2020-03-03 14:00] VITALS: BP 148/61; PULSE 92; RESP 18; TEMP 36.6; O2SAT 96
--- NOTE | 2020-03-03 17:50 | PC.NURSE ---
loratidine d not given due to administration of loratidine dose prior to order for loratineD
[2020-03-03] MEDS: traZODone HCL 50 MG TABLET PO (20:10)
[2020-03-03 20:30] VITALS: PULSE 92; RESP 18; O2SAT 96
[2020-03-03 22:00] VITALS: BP 145/60; PULSE 86; RESP 20; TEMP 36.3; O2SAT 100
[2020-03-04] MEDS: ACETAMINOPHEN 500 MG TABLET 1000 MG PO ×4 (02:50→20:47)
[2020-03-04] MEDS: oxyCODONE HCL (*CRX) 5 MG TAB IR PO ×4 (05:22→23:54)
[2020-03-04 06:00] VITALS: BP 120/56; PULSE 88; RESP 18; TEMP 36.2; O2SAT 95
[2020-03-04] MEDS: SENNOSIDES 8.6 MG TABLET PO ×2 (08:32→20:47)
[2020-03-04] MEDS: LORATADINE/PSEUDOEPHEDRINE (*CRX) 10/240 MG TABLET ER 24 HR 1 TAB PO (08:32)
[2020-03-04] MEDS: FLUTICASONE PROPIONATE 0.05% NA SPR 16 GM BTL (*BKC) 2 SPRAY NASAL (08:33)
[2020-03-04] MEDS: FLUTICASONE/SALMETEROL 230-21 MCG INHALER 1 PUFF 2 PUFF INHALATION ×2 (08:33→20:48)
[2020-03-04] MEDS: ENOXAPARIN 40 MG/0.4 ML SYRINGE SUB-Q (08:33)
--- NOTE | 2020-03-04 09:05 | PCOTNOTE ---
Attempted to see Patient for A.M. scheduled treatment session. Patient complains of having a severe sinus headache, nausea and some dizziness. Patient refused to participate at this time.
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
[2020-03-04 10:30] VITALS: BP 135/59; PULSE 85; O2SAT 97
--- NOTE | 2020-03-04 13:05 | PCOTNOTE ---
Patient performed partial treatment this session. Patient was unable to tolerate full minutes this date due to having increased complaint of severe sinus headache, nausea, dizziness and fatigue.
--- NOTE | 2020-03-04 13:50 | PCPTNOTE ---
The patient treatment was not able to be completed on 03-04-2020 due to patient stating feeling dizzy and nauseated declined therapy sessions. Attempted at 10:30 and 13:45. R.N informed. Patient missed 51 minutes of PT session this date. Will plan to continue treatment per plan of care.
[2020-03-04 14:00] VITALS: BP 119/49; PULSE 88; RESP 16; TEMP 36.6; O2SAT 97
[2020-03-04 20:44] VITALS: BP 114/46; PULSE 87; RESP 18; TEMP 36.2; O2SAT 98
[2020-03-04] MEDS: traZODone HCL 50 MG TABLET PO (20:47)
[2020-03-05] MEDS: ACETAMINOPHEN 500 MG TABLET 1000 MG PO ×4 (03:00→20:23)
[2020-03-05] MEDS: oxyCODONE HCL (*CRX) 5 MG TAB IR PO ×3 (05:47→17:55)
[2020-03-05 06:00] VITALS: BP 115/51; PULSE 83; RESP 20; TEMP 35.7; O2SAT 97
[2020-03-05 08:00] VITALS: PULSE 83; RESP 20; O2SAT 97
[2020-03-05] MEDS: SENNOSIDES 8.6 MG TABLET PO ×2 (09:31→20:24)
[2020-03-05] MEDS: LORATADINE/PSEUDOEPHEDRINE (*CRX) 10/240 MG TABLET ER 24 HR 1 TAB PO (09:31)
[2020-03-05] MEDS: FLUTICASONE PROPIONATE 0.05% NA SPR 16 GM BTL (*BKC) 2 SPRAY NASAL (09:34)
[2020-03-05] MEDS: FLUTICASONE/SALMETEROL 230-21 MCG INHALER 1 PUFF 2 PUFF INHALATION ×2 (09:37→20:23)
[2020-03-05] MEDS: ENOXAPARIN 40 MG/0.4 ML SYRINGE SUB-Q (09:42)
[2020-03-05] MEDS: ONDANSETRON HCL ODT 4 MG TABLET PO (10:27)
[2020-03-05 14:00] VITALS: BP 124/56; PULSE 86; RESP 20; TEMP 36.6; O2SAT 97
[2020-03-05] MEDS: traZODone HCL 50 MG TABLET PO (20:24)
[2020-03-05 20:45] VITALS: BP 120/59; PULSE 84; RESP 18; TEMP 35.8; O2SAT 96
[2020-03-06] MEDS: oxyCODONE HCL (*CRX) 5 MG TAB IR PO ×4 (00:17→17:27)
[2020-03-06] MEDS: ACETAMINOPHEN 500 MG TABLET 1000 MG PO ×4 (03:25→20:39)
[2020-03-06 06:00] VITALS: BP 119/57; PULSE 92; RESP 18; TEMP 36.2; O2SAT 94
[2020-03-06 08:00] VITALS: PULSE 92; RESP 18; O2SAT 94
[2020-03-06] MEDS: FLUTICASONE PROPIONATE 0.05% NA SPR 16 GM BTL (*BKC) 2 SPRAY NASAL (09:00)
[2020-03-06] MEDS: ENOXAPARIN 40 MG/0.4 ML SYRINGE SUB-Q (09:00)
[2020-03-06] MEDS: SENNOSIDES 8.6 MG TABLET PO ×2 (09:01→20:40)
[2020-03-06] MEDS: FLUTICASONE/SALMETEROL 230-21 MCG INHALER 1 PUFF 2 PUFF INHALATION ×2 (09:01→20:39)
[2020-03-06] MEDS: polyethylene glycoL 3350 17 GM POWD.PACK PO (09:01)
[2020-03-06] MEDS: LORATADINE/PSEUDOEPHEDRINE (*CRX) 10/240 MG TABLET ER 24 HR 1 TAB PO (09:06)
[2020-03-06] MEDS: ONDANSETRON HCL ODT 4 MG TABLET PO (09:06)
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
[2020-03-06 14:00] VITALS: BP 117/56; PULSE 79; RESP 20; TEMP 36.3; O2SAT 99
[2020-03-06 20:00] VITALS: PULSE 79; RESP 20; O2SAT 99
[2020-03-06] MEDS: traZODone HCL 50 MG TABLET PO (20:41)
[2020-03-06 21:14] VITALS: BP 127/52; PULSE 82; RESP 20; TEMP 35.9; O2SAT 94
[2020-03-07] MEDS: oxyCODONE HCL (*CRX) 5 MG TAB IR PO ×4 (00:18→17:21)
[2020-03-07] MEDS: ACETAMINOPHEN 500 MG TABLET 1000 MG PO ×4 (03:02→20:11)
[2020-03-07 05:53] VITALS: BP 123/54; PULSE 90; RESP 18; TEMP 36.4; O2SAT 93
[2020-03-07 08:00] VITALS: PULSE 90; RESP 18; O2SAT 93
[2020-03-07] MEDS: FLUTICASONE PROPIONATE 0.05% NA SPR 16 GM BTL (*BKC) 2 SPRAY NASAL (09:43)
[2020-03-07] MEDS: ENOXAPARIN 40 MG/0.4 ML SYRINGE SUB-Q (09:44)
[2020-03-07] MEDS: FLUTICASONE/SALMETEROL 230-21 MCG INHALER 1 PUFF 2 PUFF INHALATION ×2 (09:45→20:11)
[2020-03-07] MEDS: LORATADINE/PSEUDOEPHEDRINE (*CRX) 10/240 MG TABLET ER 24 HR 1 TAB PO (09:47)
[2020-03-07] MEDS: polyethylene glycoL 3350 17 GM POWD.PACK PO (09:47)
[2020-03-07] MEDS: SENNOSIDES 8.6 MG TABLET PO ×2 (09:47→20:11)
[2020-03-07 14:00] VITALS: BP 121/51; PULSE 90; RESP 18; TEMP 36.3; O2SAT 97
[2020-03-07] MEDS: traZODone HCL 50 MG TABLET PO (20:11)
[2020-03-08] MEDS: oxyCODONE HCL (*CRX) 5 MG TAB IR PO ×3 (00:11→11:51)
[2020-03-08] MEDS: ACETAMINOPHEN 500 MG TABLET 1000 MG PO ×2 (03:54→08:37)
[2020-03-08 06:00] VITALS: BP 122/48; PULSE 85; RESP 20; TEMP 36.6; O2SAT 98
[2020-03-08] MEDS: ENOXAPARIN 40 MG/0.4 ML SYRINGE SUB-Q (08:28)
[2020-03-08] MEDS: FLUTICASONE PROPIONATE 0.05% NA SPR 16 GM BTL (*BKC) 2 SPRAY NASAL (08:29)
[2020-03-08] MEDS: polyethylene glycoL 3350 17 GM POWD.PACK PO (08:29)
[2020-03-08] MEDS: LORATADINE/PSEUDOEPHEDRINE (*CRX) 10/240 MG TABLET ER 24 HR 1 TAB PO (08:37)
[2020-03-08] MEDS: SENNOSIDES 8.6 MG TABLET PO (08:37)
[2020-03-08] MEDS: FLUTICASONE/SALMETEROL 230-21 MCG INHALER 1 PUFF 2 PUFF INHALATION (08:41)
[2020-03-08] MEDS: ONDANSETRON HCL ODT 4 MG TABLET PO (11:51)
--- NOTE | 2020-03-11 12:04 | PM.DS ---
DS: Admitting Diagnosis Admitting Diagnosis Admitting Diagnosis: C2 burst fracture DS: Summary Hospital Course Hospital Course: stable Time Spent with Patient Time attestation: Total time spent providing and/or coordinating discharge services:ADMISSION FUNCTION: 79 years old lady admitted to the rehab floor with C2 vertebral body burst fracture involving both pedicles and left inferior and superior pubic rami fractures in addition to multiple rib fractures along with comorbid conditions of 1. Bronchial asthma 2.raynaud,s disease 3. T10 compression fracture as well. Initial evaluation revealed her functional measures as follows. Eating supervision Oral Care partial or mod assist Toileting Hygiene substantial or max assist Shower/Bathing substantial or max assist Upper Body Dressing substantial or max assist Lower Body Dressing dependent Donning/Riesel Footwear dependent Rolling Left and Right partial or mod assist Sit to Lying not applicable Lying to Sitting partial or mod assist Sit to Stand substantial or max assist Bed to Chair Transfers substantial or max assist Toilet Transfers substantial or max is Car Transfers substantial or max assist Walking 10' substantial or max assist Walking 50' with Two Turns substantial or max assist Walking 150' substantial or max assist Curb or Step not applicable 4 Steps not applicable 12 Steps not applicable Picking Up Object supervision [Wheelchair Mobility 50'] not applicable [Wheelchair Mobility 150'] not applicable GOALS: Eating set up Oral Care set up Toileting Hygiene supervision Shower/Bathing partial or mod assist Upper Body Dressing partial or mod assist Lower Body Dressing set up Donning/Riesel Footwear set up Sit to Lying independent Lying to Sitting independent Sit to Stand [INDEPENDENT] Bed to Chair Transfers supervised Toilet Transfers supervision Car Transfers supervision Walking 10' supervision Walking 50' with Two Turns supervision Curb or Step supervision 4 Steps supervision 12 Steps not applicable Picking Up Object [INDEPENDENT] [Wheelchair Mobility 50'] not applicable [Wheelchair Mobility 150'] not applicable DISCHARGE PERFORMANCE: Eating [INDEPENDENT] Oral Care [INDEPENDENT] Toileting Hygiene [INDEPENDENT] Shower/Bathing supervision Upper Body Dressing partial or mod assist Lower Body Dressing supervision Donning/Riesel Footwear supervision Rolling Left and Right supervision Lying to Sitting supervision Sit to Stand [INDEPENDENT] Bed to Chair Transfers [INDEPENDENT] Toilet Transfers [INDEPENDENT] Car Transfers [INDEPENDENT] Walking 10' [INDEPENDENT] Walking 50' with Two Turns [INDEPENDENT] Walking 150' [INDEPENDENT] Curb or Step [INDEPENDENT] 4 Steps [INDEPENDENT] 12 Steps [INDEPENDENT] Picking Up Object [INDEPENDENT] [Wheelchair Mobility 50'] not applicable [Wheelchair Mobility 150'] not applicable during the hospitalization patient was involved in the physical therapy and occupational therapy on a regular basis at the time of discharge patient was afebrile with pulse ox of 94% on room air and blood pressure 119/57 was able to in ambulate up to 150ft independently using a wheeled walker and during the entire hospitalization had no falls or injuries was discharged to home with home health instruction. Discharge Plan Discharge Attending physician on discharge: Lalo Rodriguez Discharging Clinician: Lalo Rodriguez Anticipated Discharge Date/Time: 03/11/20 09:41 Patient Disposition: Home Health Service Activity: no driving Diet: regular Wound Care Instructions: change dressing daily Discharge Instructions: NO DRIVING WHILE WEARING sOMI BRACE AND WHILE TAKING PAIN MEDICATIONS. DO NOT LIFT GREATER THATN 10 POUNDS FOR 4 WEEKS. WALK TOLERATES. NO TUBE BATHS, UNTIL PROVIDER SAYS ITS OKAY. PAIN SCRIPT IS IN FRONT OF CHART. CHECK BLOOD PRESSURE AT HOME AND KEEP TRACK OF READINGS. WEIGHT
== END 2020-03-08 12:30 | disposition home health service (06) | DRG 561 ==
PROVIDERS: Admitting Provider Psychiatry & Neurology Neurology; PCP Family Medicine; Visit Provider Psychiatry & Neurology Neurology
DX: S12.190D Other displaced fracture of second cervical vertebra, subsequent encounter for fracture with routine healing (principal); S22.070D Wedge compression fracture of T9-T10 vertebra, subsequent encounter for fracture with routine healing; S32.512D Fracture of superior rim of left pubis, subsequent encounter for fracture with routine healing; S22.43XD Multiple fractures of ribs, bilateral, subsequent encounter for fracture with routine healing; S43.004D Unspecified dislocation of right shoulder joint, subsequent encounter; R29.6 Repeated falls; D64.9 Anemia, unspecified; E78.5 Hyperlipidemia, unspecified; I73.00 Raynaud's syndrome without gangrene; J45.909 Unspecified asthma, uncomplicated; M19.011 Primary osteoarthritis, right shoulder; M19.012 Primary osteoarthritis, left shoulder; N28.89 Other specified disorders of kidney and ureter; R06.89 Other abnormalities of breathing; T78.40XD Allergy, unspecified, subsequent encounter; W19.XXXD Unspecified fall, subsequent encounter; Z85.89 Personal history of malignant neoplasm of other organs and systems; Z98.890 Other specified postprocedural states
CPT/HCPCS: 36415; 80048; 85025; 97110; 97116; 97161; 97166; 97530; 97535; 97760; A9270; J1650